=== PATIENT | male | born 1970 | race Caucasian/White ===

== ENCOUNTER 2019-08-14 17:08 | Emergency (ER) | payer BC, OTHER ==
[2019-08-14] MEDS ORDERED: Colchicine 0.6 MG TAB ONE ×2 (17:37→18:55)
[2019-08-14] MEDS ORDERED: methylPREDNISolone Sod Succ/PF 125 MG/2 ML VIAL ONE (17:37)
[2019-08-14] MEDS ORDERED: Ondansetron PF 4 MG/2 ML Vial ONE (17:38)
[2019-08-14] MEDS ORDERED: Morphine 4 MG/ML VIAL ONE (17:39)
[2019-08-14] MEDS ORDERED: Sodium Chloride 0.9% 1,000 ML ONE (17:40)
[2019-08-14 17:49] LABS: #Basophils 0.1 thou/uL (0.0-0.2); #Eosinphils 0.2 thou/uL (0.0-0.7); #Lymphocytes 1.6 thou/uL (1.20-3.40); #Monocytes 0.8 thou/uL (0.11-0.59); #Neutrophils 7.2 thou/uL (1.40-6.50); %Basophils 0.6 % (0.0-1.0); %Eosinophils 1.8 % (0.0-10.0); %Lymphocytes 16.3 % (21.0-51.0); %Monocytes 7.9 % (0.0-10.0); %Neutrophils 73.4 % (42.0-75.0); Hemoglobin 13.9 g/dL (14.0-18.0); Mean Corpuscular HGB CONC 31.1 g/dL (32.0-36.0); Mean Corpuscular Hemoglobin 25.9 pg (27.0-31.0); Mean Corpuscular Volume 83.3 fL (78.0-98.0); Mean Platelet Volume 7.1 fL (7.4-10.4); Platelet Count 206 thou/uL (130-400); RBC Distribution Width 13.5 % (11.5-14.5); Red Blood Cell (RBC) Count 5.36 mill/uL (4.70-6.10); White Blood Cell (WBC) Count 9.8 thou/uL (4.8-10.8)
[2019-08-14 18:08] LABS: Anion Gap 15 mmol/L (10-20); BUN (Urea Nitrogen) 10 mg/dL (8.9-20.6); Calc. Creatinine Clearance 0 mL/min (70-130); Calcium 9.1 mg/dL (7.8-10.44); Carbon Dioxide 27 mmol/L (22-29); Chloride 100 mmol/L (98-107); Estimated GFR-MDRD 79; Glucose 104 mg/dL (70-105); Potassium 4.1 mmol/L (3.5-5.1); Sodium 138 mmol/L (136-145)
[2019-08-14] MEDS ORDERED: Acetaminophen 500 MG TAB ONE (19:01)
== END 2019-08-14 19:16 | disposition home or self-care (01) ==
LOC: NAV ERS 17:08
DX: M10.9 Gout, unspecified (principal); I10 Essential (primary) hypertension; F17.220 Nicotine dependence, chewing tobacco, uncomplicated; Z79.899 Other long term (current) drug therapy
CPT/HCPCS: 36415; 80048; 84550; 85025; 96365; 96375; J2270; J2405; J2930; J7050

== ENCOUNTER 2019-10-24 14:08 | Emergency (ER) | payer OTHER ==
[2019-10-24] MEDS ORDERED: Ketorolac Tromethamine 30 MG/ML VIAL ONE (14:29)
[2019-10-24] MEDS ORDERED: Sodium Chloride 0.9% 0 ML ONE (14:29)
[2019-10-24] MEDS ORDERED: Sodium Chloride 0.9% 500 ML ONE (14:30)
[2019-10-24 14:34] LABS: #Basophils 0.1 thou/uL (0.0-0.2); #Eosinphils 0.2 thou/uL (0.0-0.7); #Lymphocytes 1.7 thou/uL (1.20-3.40); #Monocytes 0.6 thou/uL (0.11-0.59); #Neutrophils 6.6 thou/uL (1.40-6.50); %Basophils 0.8 % (0.0-1.0); %Monocytes 6.6 % (0.0-10.0); %Neutrophils 72.6 % (42.0-75.0); Hemoglobin 14.8 g/dL (14.0-18.0); Mean Corpuscular HGB CONC 31.6 g/dL (32.0-36.0); Mean Corpuscular Hemoglobin 26.4 pg (27.0-31.0); Mean Corpuscular Volume 83.5 fL (78.0-98.0); Mean Platelet Volume 6.3 fL (7.4-10.4); Platelet Count 269 thou/uL (130-400); RBC Distribution Width 14.3 % (11.5-14.5); Red Blood Cell (RBC) Count 5.62 mill/uL (4.70-6.10); White Blood Cell (WBC) Count 9.2 thou/uL (4.8-10.8)
[2019-10-24 14:46] LABS: Bilirubin Negative (Negative); Blood, Urine Moderate (Negative); Clarity Clear (Clear); Glucose, Urine (Dipstick) Negative (Negative); Leukocyte Negative (Negative); Nitrite Negative (Negative); Protein, Urine (Dipstick) Negative (Neg-Trace); Urobilinogen 0.2 mg/dL (Less than 2)
[2019-10-24 14:48] LABS: Bacteria/HPF None Seen HPF (None Seen)
[2019-10-24 14:52] LABS: Anion Gap 14 mmol/L (10-20); BUN (Urea Nitrogen) 11 mg/dL (8.9-20.6); Calc. Creatinine Clearance 0 mL/min (70-130); Calcium 8.9 mg/dL (7.8-10.44); Carbon Dioxide 26 mmol/L (22-29); Chloride 102 mmol/L (98-107); Estimated GFR-MDRD 79; Glucose 108 mg/dL (70-105); Potassium 4.1 mmol/L (3.5-5.1); Sodium 138 mmol/L (136-145)
--- NOTE | 2019-10-24 14:55 | CT ---
CT abdomen and pelvis noncontrast HISTORY: Right flank pain. FINDINGS: There is mild distention of the right renal collecting system and ureter to the level of an oval 0.4 cm calculus within the distal right ureter. There are 2 calcifications within calyces of the right kidney, each measuring 0.7 cm greatest diameter. No calcifications on the left. Urinary bladder is unremarkable. Lack of contrast limits evaluation for other abnormalities. Bariatric lap band in place. No evidence of bowel obstruction. Degenerative changes lumbar spine with bilateral spondylolysis and grade 1 spondylolisthesis at the L4-5 level where degenerative changes are also most pronounced. IMPRESSION : Low-grade obstruction at a 4 mm distal right ureteral calculus. Additional larger nonobstructing right renal calculi.
[2019-10-24] MEDS ORDERED: Ondansetron PF 4 MG/2 ML Vial ONE (15:03)
[2019-10-24] MEDS ORDERED: Morphine 2 MG/ML SYRINGE ONE (15:03)
== END 2019-10-24 15:20 | disposition home or self-care (01) ==
LOC: NAV ERS 14:08
DX: N23 Unspecified renal colic (principal); I10 Essential (primary) hypertension; F17.220 Nicotine dependence, chewing tobacco, uncomplicated; Z79.899 Other long term (current) drug therapy
CPT/HCPCS: 74176; 80048; 81003; 81015; 85025; 96374; 96375; J1885; J2270; J2405; J7050

== ENCOUNTER 2023-06-11 17:23 | Emergency (ER) | payer OTHER, SELFPAY ==
[~2023-06-11 17:23] MED LIST: Iopamidol 370 76% 100 ML VIAL ONE
[2023-06-11 18:06] LABS: #Basophils 0.1 thou/uL (0.0-0.2); #Eosinphils 0.2 thou/uL (0.0-0.7); #Lymphocytes 2.1 thou/uL (1.20-3.40); #Monocytes 0.8 thou/uL (0.11-0.59); #Neutrophils 9.1 thou/uL (1.40-6.50); %Basophils 1.1 % (0.0-1.0); %Eosinophils 1.5 % (0.0-10.0); %Lymphocytes 16.8 % (21.0-51.0); %Monocytes 6.5 % (0.0-10.0); %Neutrophils 74.2 % (42.0-75.0); Hematocrit 50.9 % (42.0-52.0); Hemoglobin 15.6 g/dL (14.0-18.0); Mean Corpuscular HGB CONC 30.7 g/dL (32.0-36.0); Mean Corpuscular Hemoglobin 24.9 pg (27.0-31.0); Mean Corpuscular Volume 81.2 fl (78.0-98.0); Platelet Count 244 10x3/uL (130-400); RBC Distribution Width 15.2 % (11.5-14.5); Red Blood Cell (RBC) Count 6.27 mill/uL (4.70-6.10); White Blood Cell (WBC) Count 12.3 10x3/uL (4.8-10.8)
[2023-06-11 18:19] LABS: ALT (SGPT) 15 U/L (8-55); AST (SGOT) 20 U/L (5-34); Albumin 4.1 g/dL (3.5-5.0); Alkaline Phosphatase 88 U/L (40-110); Anion Gap 15 mmol/L (10-20); BUN (Urea Nitrogen) 13 mg/dL (8.4-25.7); Bilirubin, Total 0.4 mg/dL (0.2-1.2); Calc. Creatinine Clearance 0 mL/min (70-130); Calcium 8.7 mg/dL (7.8-10.44); Carbon Dioxide 25 mmol/L (22-29); Chloride 103 mmol/L (98-107); Estimated GFR 104; Glucose 83 mg/dL (70-105); Magnesium 1.9 mg/dL (1.6-2.6); Potassium 3.9 mmol/L (3.5-5.1); Protein, Total 6.1 g/dL (6.0-8.3); Sodium 139 mmol/L (136-145)
[2023-06-11 18:20] LABS: PTT 25.5 sec (22.9-36.1); Troponin I Less than 0.010 ng/mL (< 0.028)
[2023-06-11 18:22] LABS: D-Dimer Test Less than 0.27 *mcg/mL (0.27-0.43)
[2023-06-11 21:16] LABS: Troponin I 0.011 ng/mL (< 0.028)
== END 2023-06-11 20:56 | disposition home or self-care (01) ==
LOC: NAV ERS 17:23
DX: H53.8 Other visual disturbances (principal); I10 Essential (primary) hypertension; D72.829 Elevated white blood cell count, unspecified; R29.700 NIHSS score 0; M10.9 Gout, unspecified; F17.220 Nicotine dependence, chewing tobacco, uncomplicated; Z79.899 Other long term (current) drug therapy
CPT/HCPCS: 70496; 70498; 71045; 71275; 80053; 83605; 83735; 83880; 84484; 85025; 85379; 85610; 85730; 93005; Q9967

== ENCOUNTER 2023-08-31 12:39 | Emergency (ER) | payer OTHER ==
[2023-08-31] MEDS ORDERED: Pantoprazole 40 MG VIAL ONE (13:19)
[2023-08-31] MEDS ORDERED: Aspirin Chewable 81 MG TAB ONE (13:19)
[2023-08-31] MEDS ORDERED: Sodium Chloride 0.9% 1,000 ML ONE (13:21)
[2023-08-31] MEDS ORDERED: Ipratropium/Albuterol 3 ML NEB ONE (13:21)
[2023-08-31 13:38] LABS: ALT (SGPT) 12 U/L (8-55); AST (SGOT) 13 U/L (5-34); Albumin 3.6 g/dL (3.5-5.0); Alkaline Phosphatase 68 U/L (40-110); Anion Gap 14 mmol/L (10-20); BUN (Urea Nitrogen) 10 mg/dL (8.4-25.7); Bilirubin, Total 0.8 mg/dL (0.2-1.2); CK (CPK) 88 U/L (30-200); Calc. Creatinine Clearance 0 mL/min (70-130); Calcium 8.3 mg/dL (7.8-10.44); Carbon Dioxide 23 mmol/L (22-29); Chloride 103 mmol/L (98-107); Estimated GFR 107; Globulin 2.8 g/dL (2.4-3.5); Glucose 102 mg/dL (70-105); Lipase 23 U/L (8-78); Potassium 3.6 mmol/L (3.5-5.1); Protein, Total 6.4 g/dL (6.0-8.3); Sodium 136 mmol/L (136-145); Troponin I Less than 0.010 ng/mL (< 0.028)
[2023-08-31 13:45] LABS: #Basophils 0.1 thou/uL (0.0-0.2); #Eosinphils 0.2 thou/uL (0.0-0.7); #Lymphocytes 0.9 thou/uL (1.20-3.40); #Monocytes 0.7 thou/uL (0.11-0.59); #Neutrophils 7.6 thou/uL (1.40-6.50); %Basophils 0.7 % (0.0-1.0); %Eosinophils 2.1 % (0.0-10.0); %Lymphocytes 9.3 % (21.0-51.0); %Monocytes 7.4 % (0.0-10.0); %Neutrophils 80.5 % (42.0-75.0); Hemoglobin 15.6 g/dL (14.0-18.0); Mean Corpuscular HGB CONC 30.6 g/dL (32.0-36.0); Mean Corpuscular Hemoglobin 23.8 pg (27.0-31.0); Mean Corpuscular Volume 77.8 fl (78.0-98.0); Mean Platelet Volume 6.2 fL (7.4-10.4); Platelet Count 224 10x3/uL (130-400); Red Blood Cell (RBC) Count 6.56 mill/uL (4.70-6.10); White Blood Cell (WBC) Count 9.5 10x3/uL (4.8-10.8)
[2023-08-31 13:49] LABS: Anisocytosis SLIGHT = 6-15 cells (100X) (0-5/hpf); MDiff Complete? YES; Platelet Adequacy Comment Appears Adequate; Stomatocytes SLIGHT = 2-5 cells (100X) (0-1/hpf)
[2023-08-31 14:00] LABS: SARS-CoV-2 NAA Rapid Test Not Detected (NotDetected)
[2023-08-31] MEDS ORDERED: Enoxaparin 100 MG (1 mL) SYRINGE ONE (15:27)
[2023-08-31] MEDS ORDERED: Enoxaparin 30 MG (0.3 mL) SYRINGE ONE (15:27)
[2023-08-31] MEDS ORDERED: Benzonatate 100 MG CAP ONE (15:27)
[2023-08-31 17:37] LABS: Troponin I Less than 0.010 ng/mL (< 0.028)
[2023-08-31] MEDS ORDERED: guaiFENesin ER 600 MG TAB ONE (17:40)
[2023-08-31] MEDS ORDERED: guaiFENesin ER 600 MG TAB PO SCH (21:00)
[2023-08-31] MEDS ORDERED: Benzonatate 100 MG CAP PO SCH (21:00)
[2023-08-31] MEDS ORDERED: rOPINIRole HCl 1 MG TAB PO SCH (21:00)
[2023-08-31] MEDS ORDERED: Carvedilol 6.25 MG TAB PO SCH (21:00)
[2023-08-31 21:19] LABS: Troponin I Less than 0.010 ng/mL (< 0.028)
[2023-08-31 23:18] LABS: Prothrombin Time 13.2 sec (12.0-14.7)
[2023-08-31 23:19] LABS: PTT 32.3 sec (22.9-36.1)
[2023-08-31] MEDS ORDERED: Enoxaparin 100 MG (1 mL) SYRINGE SC SCH (23:59)
[2023-08-31] MEDS ORDERED: Enoxaparin 30 MG (0.3 mL) SYRINGE SC SCH (23:59)
[2023-09-01] MEDS ORDERED: Acetaminophen 325 MG TAB PO PRN (00:16)
[2023-09-01] MEDS ORDERED: Enoxaparin 100 MG (1 mL) SYRINGE ONE (03:35)
[2023-09-01] MEDS ORDERED: Enoxaparin 30 MG (0.3 mL) SYRINGE ONE (03:35)
[2023-09-01] MEDS ORDERED: Acetaminophen 325 MG TAB ONE (05:00)
[2023-09-01] MEDS ORDERED: Carvedilol 6.25 MG TAB PO SCH (08:00)
[2023-09-01] MEDS ORDERED: Enoxaparin 30 MG (0.3 mL) SYRINGE SC SCH (09:00)
[2023-09-01] MEDS ORDERED: Allopurinol 100 MG TAB PO SCH (09:00)
[2023-09-01] MEDS ORDERED: Enoxaparin 100 MG (1 mL) SYRINGE SC SCH (09:00)
[2023-09-01] MEDS ORDERED: Apixaban 5 MG TAB PO SCH (09:00)
[2023-09-01] MEDS ORDERED: Lisinopril 5 MG TAB PO SCH (09:00)
[2023-09-01] MEDS ORDERED: Sertraline 25 MG TAB PO SCH (09:00)
[2023-09-01] MEDS ORDERED: Benzonatate 100 MG CAP ONE (09:20)
[2023-09-01] MEDS ORDERED: Lisinopril 5 MG TAB ONE (09:21)
[2023-09-01] MEDS ORDERED: Sertraline 25 MG TAB ONE (09:21)
== END 2023-08-31 14:02 | disposition short-term general hospital (02) ==
LOC: NAV ERS 12:39
DX: I26.99 Other pulmonary embolism without acute cor pulmonale (principal); R09.02 Hypoxemia; J10.1 Influenza due to other identified influenza virus with other respiratory manifestations; R19.5 Other fecal abnormalities; I11.0 Hypertensive heart disease with heart failure; I50.9 Heart failure, unspecified; F17.220 Nicotine dependence, chewing tobacco, uncomplicated; Z79.899 Other long term (current) drug therapy
CPT/HCPCS: 0241U; 71046; 71275; 80053; 82550; 83605; 83690; 83880; 84484; 85025; 85379; 85610; 85730; 87040; 87070; 87081; 87205; 87430; 93005; 94640; 94760; 96374; C9113; J1650; J7050; J7620

== ENCOUNTER 2023-12-31 19:03 | Emergency (ER) | payer OTHER ==
[2023-12-31] MEDS ORDERED: Sodium Chloride 0.9% 1,000 ML ONE (19:53)
[2023-12-31 20:24] LABS: ALT (SGPT) 18 U/L (8-55); AST (SGOT) 17 U/L (5-34); Albumin 3.9 g/dL (3.5-5.0); Alkaline Phosphatase 74 U/L (40-110); Anion Gap 16 mmol/L (10-20); BUN (Urea Nitrogen) 17 mg/dL (8.4-25.7); Bilirubin, Total 0.4 mg/dL (0.2-1.2); Calc. Creatinine Clearance 0 mL/min (70-130); Calcium 9.2 mg/dL (7.8-10.44); Carbon Dioxide 24 mmol/L (22-29); Chloride 102 mmol/L (98-107); Estimated GFR 104; Globulin 2.7 g/dL (2.4-3.5); Glucose 98 mg/dL (70-105); Potassium 4.5 mmol/L (3.5-5.1); Protein, Total 6.6 g/dL (6.0-8.3); Sodium 137 mmol/L (136-145)
[2023-12-31 20:25] LABS: Troponin I Less than 0.010 ng/mL (< 0.028)
[2023-12-31] MEDS ORDERED: Ketorolac Tromethamine 30 MG (1 mL) VIAL ONE (20:26)
[2023-12-31] MEDS ORDERED: Ondansetron PF 4 MG/2 ML Vial ONE (20:26)
[2023-12-31 20:35] LABS: #Basophils 0.1 thou/uL (0.0-0.2); #Eosinphils 0.1 thou/uL (0.0-0.7); #Lymphocytes 1.3 thou/uL (1.20-3.40); #Monocytes 0.8 thou/uL (0.11-0.59); #Neutrophils 10.3 thou/uL (1.40-6.50); %Basophils 0.8 % (0.0-1.0); %Eosinophils 0.8 % (0.0-10.0); %Lymphocytes 10.6 % (21.0-51.0); %Monocytes 6.3 % (0.0-10.0); %Neutrophils 81.5 % (42.0-75.0); Hematocrit 46.2 % (42.0-52.0); Hemoglobin 13.9 g/dL (14.0-18.0); Mean Corpuscular Volume 86.5 fl (78.0-98.0); Mean Platelet Volume 6.2 fL (7.4-10.4); Platelet Count 189 10x3/uL (130-400); RBC Distribution Width 16.6 % (11.5-14.5); Red Blood Cell (RBC) Count 5.34 mill/uL (4.70-6.10); White Blood Cell (WBC) Count 12.6 10x3/uL (4.8-10.8)
[2023-12-31 21:38] LABS: Bilirubin Negative (Negative); Blood, Urine Negative (Negative); Clarity Clear (Clear); Glucose, Urine (Dipstick) Negative (Negative); Ketone, Urine Negative (Negative); Leukocyte Negative (Negative); Nitrite Negative (Negative); Protein, Urine (Dipstick) Negative (Neg-Trace); Specific Gravity, Urine 1.025 (1.005-1.030); Urobilinogen 0.2 mg/dL (Less than 2); pH, Urine 5.5 (5.0-9.0)
[2023-12-31 21:39] LABS: Bacteria/HPF None Seen HPF (None Seen); CAUTI Indications for Culture Alt mental st,lethar; RBC/HPF None Seen HPF (0-3); Squamous Epithelial None Seen HPF (0-3); Urine Culture Reflex No No; WBC/HPF None Seen HPF (0-3)
== END 2023-12-31 22:19 | disposition home or self-care (01) ==
LOC: NAV ERS 19:03
DX: R55 Syncope and collapse (principal); I10 Essential (primary) hypertension; F17.220 Nicotine dependence, chewing tobacco, uncomplicated; Z79.899 Other long term (current) drug therapy
CPT/HCPCS: 70450; 80053; 81001; 84443; 84484; 85025; 93005; 96361; 96374; 96375; J1885; J2405; J7050